=== PATIENT | male | born 1985 | race Two or more races ===

== ENCOUNTER 2018-03-15 20:25 | Emergency (ER) | payer OTHER ==
[~2018-03-15] VITALS: Ht 175.3 cm; Wt 83.9 kg
== END 2018-03-15 22:29 | disposition home or self-care (01) ==
LOC: ER 20:25 → EDBD 20:58 → ER 20:58
DX: J06.9 Acute upper respiratory infection, unspecified (principal)

== ENCOUNTER 2021-01-11 10:27 | Outpatient (CLI) | payer OTHER | END 2021-01-11 11:25 | disposition home or self-care (01) | LOC: LAB 10:27 | PROVIDERS: ATTEND Obstetrics & Gynecology | DX: Z20.818 Contact with and (suspected) exposure to other bacterial communicable diseases (principal) ==